=== PATIENT | male | born 1960 | race Caucasian/White ===

== ENCOUNTER 2016-11-21 16:26 | Emergency (ER) | payer BC ==
[~2016-11-21] VITALS: Ht 177.8 cm; Wt 74.8 kg
[2016-11-21 16:39] VITALS: BP_SYST 104
[2016-11-21] MEDS ORDERED: KETOROLAC TROMETHAMINE 60 MG/2 ML VIAL IM ONE (18:30)
[2016-11-21 19:24] VITALS: BP_SYST 104
== END 2016-11-21 19:24 | disposition home or self-care (01) ==
LOC: SED 16:26
DX: R51 Headache (principal); V89.2XXA Person injured in unspecified motor-vehicle accident, traffic, initial encounter; Y93.89 Activity, other specified; Y92.410 Unspecified street and highway as the place of occurrence of the external cause; Y99.8 Other external cause status
CPT/HCPCS: 99283; J1885